=== PATIENT | male | born 1985 | race African-American/Black ===

== ENCOUNTER 2025-06-24 00:16 | Emergency (ER) | payer SELFPAY ==
[~2025-06-24] VITALS: Ht 180.3 cm; Wt 80.7 kg
[2025-06-24 00:28] VITALS: PULSE 90; RESP 18; TEMP 98.6
[2025-06-24] MEDS: IBUPROFEN 600 MG TAB PO STA (01:06)
[2025-06-24] MEDS ORDERED: KETOROLAC TROME10 MG PO (01:32)
[2025-06-24 01:37] VITALS: BP 113/68; PULSE 89; RESP 16; TEMP 98.4; O2SAT 96
== END 2025-06-24 01:41 | disposition home or self-care (01) ==
LOC: FSED 00:32
DX: M25.551 Pain in right hip (principal); S70.01XA Contusion of right hip, initial encounter; W18.39XA Other fall on same level, initial encounter; Y92.89 Other specified places as the place of occurrence of the external cause
CPT/HCPCS: 99284